=== PATIENT | male | born 1995 | race American Indian/Alaskan Native ===

== ENCOUNTER 2021-08-11 23:44 | Emergency (ER) | payer SELFPAY ==
[2021-08-12] MEDS ORDERED: levETIRAcetam 1000 MG/NS 0.75% 1,000 MG/100 ML BAG IV ONE (01:02)
--- NOTE | 2021-08-12 01:07 | Emergency Department Report ---
HPI - General Chief Complaint: Seizure Time Seen by Provider: 08/12/21 01:00 - [facility] HPI: Room 1 Patient is a 26-year-old male present with chief complaint of seizure. The patient states he went to sleep in his usual state of health and when he awakened family was around him and he appeared confused. Patient reportedly had a seizure at home witnessed by family. The patient states he had his first seizure of life approximately 6 months ago but he does not recall if he followed up with a neurologist. Patient states he is not on any seizure medication ED Past Medical Hx - Past Medical History Hx Seizures: Yes (X2) - Surgical History Past Surgical History?: No - Family History Family history: no significant - Social History Smoking Status: Never Smoker Substance Use Type: Marijuana - Medications Home Medications: Home Medications Medication Instructions Recorded Confirmed Last Taken Type levETIRAcetam [Keppra TAB] 500 mg PO BID #60 tablet 08/12/21 Unknown Rx ED Review of Systems ROS: Stated complaint: SEIZURE Other details as noted in HPI Constitutional: no symptoms reported Eyes: denies: eye pain ENT: denies: throat pain Respiratory: no symptoms reported Cardiovascular: denies: chest pain Endocrine: no symptoms reported Gastrointestinal: denies: abdominal pain Genitourinary: denies: dysuria Musculoskeletal: denies: back pain Neurological: denies: headache Physical Exam - Physical Exam Vital Signs: Vital Signs 08/11/21 23:55 Temperature 99.2 F Pulse Rate 98 H Respiratory 18 Rate Blood Pressure 142/77 [Left] O2 Sat by Pulse 100 Oximetry Physical Exam: GENERAL: The patient is well-developed well-nourished male lying on stretcher not appearing to be in acute distress. [] HEENT: Normocephalic. Atraumatic. Extraocular motions are intact. Patient has moist mucous membranes. NECK: Supple. No meningitic signs are noted. There is no adenopathy noted. CHEST/LUNGS: Clear to auscultation. There is no respiratory distress noted. HEART/CARDIOVASCULAR: Regular. There is no tachycardia. There is no gallop rub or murmur. ABDOMEN: Abdomen is soft, nontender. Patient has normal bowel sounds. There is no abdominal distention. SKIN: There is no rash. There is no edema. There is no diaphoresis. NEURO: The patient is awake, alert, and oriented. The patient is cooperative. The patient has no focal neurologic deficits. The patient has normal speech. Cranial nerves II through XII grossly intact. GCS 15 MUSCULOSKELETAL: There is no evidence of acute injury. ED Course Vital Signs 08/11/21 23:55 Temperature 99.2 F Pulse Rate 98 H Respiratory 18 Rate Blood Pressure 142/77 [Left] O2 Sat by Pulse 100 Oximetry ED Medical Decision Making - Lab Data Result diagrams: 08/12/21 01:11 08/12/21 01:11 - Radiology Data Radiology results: report reviewed (CT head), image reviewed (CT head) [facility] [address] [place] [address] Cat Scan Report Signed Patient: AG MCCOLLUM MR#: [id number] 0 : 1995 Acct:[id number] Age/Sex: 26 / M ADM Date: 08/11/21 Loc: ED Attending Dr: Ordering Physician: JANE ELIZONDO MD Date of Service: 08/12/21 Procedure(s): CT head/brain wo con Accession Number(s): [id number] cc: JANE ELIZONDO MD CT HEAD WITHOUT CONTRAST INDICATION / CLINICAL INFORMATION: Seizure. TECHNIQUE: All CT scans at this location are performed using CT dose reduction for ALARA by means of automated exposure control. COMPARISON: None available. FINDINGS: No acute intracranial hemorrhage. Ventricles are normal in size without midline shift or mass effect. No extra-axial fluid collection is seen. Morgan-white matter differentiation appears normal. Mild sinus disease ADDITIONAL FINDINGS: None. IMPRESSION: 1. No acute intracranial abnormality. Mild sinus disease Signer Name: Arnaud Fontana MD Signed: 08/12/2021 1:20 AM Workstation Name: [id number] Transcribed By: FEDERICO Dictated By: CECELIA FONTANA MD Electronically Authenticated By: CECELIA FONTANA MD Signed Date/Time: 08/12/21 012 DD/ 8 TD/TT: Print - Differential Diagnosis Seizure Critical care attestation.: If time is entered above; I have spent that time in minutes in the direct care of this critically ill patient, excluding procedure time. ED Disposition Clinical Impression: Seizure Disposition: 01 HOME / SELF CARE / HOMELESS Is pt being admited?: No Does the pt Need Aspirin: No Condition: Stable Instructions: Epilepsy, [id number], Seizure, Adult, [id number] Additional Instructions: You should not drive, operate heavy machinery, or swim unattended until you are cleared by a neurologist. Return to the emergency department should you develop worsening symptoms, inability to tolerate food or liquids, high fever or any other concerns Prescriptions: levETIRAcetam [Keppra TAB] 500 mg PO BID #60 tablet Referrals: IZZY GIPSON MD [Staff Physician] - 3-5 Days (Dr. Gipson is a neurologist. Please follow-up with him for further evaluation) Time of Disposition: 02:46
--- NOTE | 2021-08-12 01:24 | Cat Scan Report ---
CT HEAD WITHOUT CONTRAST INDICATION / CLINICAL INFORMATION: Seizure. TECHNIQUE: All CT scans at this location are performed using CT dose reduction for ALARA by means of automated e xposure control. COMPARISON: None available. FINDINGS: No acute intracranial hemorrhage. Ventricles are normal in size without midline shift or mass effect. No extra-axial fluid collection is seen. Morgan-white matter differentiation appears normal. Mild sinu s disease ADDITIONAL FINDINGS: None. IMPRESSION: 1. No acute intracranial abnormality. Mild sinus disease Signer Name: Arnaud Fontana MD Signed: 08/12/2021 1:20 AM Workstation Name: [id number]
[2021-08-12 01:44] LABS: Hematocrit 40.2 % (35.5-45.6); Hemoglobin 13.1 gm/dl (11.8-15.2); Mean Corpuscular HGB Conc 33 % (32-34); Mean Corpuscular Volume 85 fl (84-94); Platelet Count 134 K/mm3 (140-440); Red Blood Count 4.71 M/mm3 (3.65-5.03); Red Cell Distribution Width 13.7 % (13.2-15.2)
[2021-08-12 01:55] LABS: BUN/Creatinine Ratio 7; Blood Urea Nitrogen 7 mg/dL (9-20); Calcium 8.6 mg/dL (8.4-10.2); Hemolysis Index 3
[2021-08-12 03:24] VITALS: BP 147/82
[2021-08-12 05:34] LABS: Band Neutrophils # (Manual) 0.2 K/mm3; Basophils % (Manual) 0 % (0.0-1.8); Eosinophils % (Manual) 0 % (0.0-4.3); RBC Morphology Normal; Total Cells Counted 100
[2021-08-12 05:35] LABS: Platelet Estimate Consistent w Auto
== END 2021-08-12 03:15 | disposition home or self-care (01) ==
LOC: ED 23:44
DX: R56.9 Unspecified convulsions (principal); F12.10 Cannabis abuse, uncomplicated
CPT/HCPCS: 36415; 70450; 80048; 83735; 85007; 85025; 96365; 99284; J1953